=== PATIENT | female | born 1970 | race Caucasian/White ===

== ENCOUNTER → 2017-04-17 | Outpatient (CLI) | payer BC ==
[2017-04-17 10:36] LABS: Basophils # (A) 0.1 k/uL (0-0.2); Basophils % (A) 1 %; CH 30.7; CHCM 34.1; Eosinophils # (A) 0.3 k/uL (0-0.7); Eosinophils % (A) 4 %; HCT 40.4 % (34.0-46.0); HDW 2.55; HGB 14.4 gm/dL (11.4-16.0); Luc # (Auto) 0.16; Luc % (Auto) 2; Lymphocytes # (A) 1.8 k/uL (1.0-4.8); Lymphocytes % (A) 25 %; MCH 32.2 pg (25.0-35.0); MCHC 35.6 g/dL (31.0-37.0); MCV 90.3 fL (80.0-100.0); Mean Platelet Volume 7.4; Monocytes # (A) 0.4 k/uL (0-1.0); Monocytes % (A) 6 %; Neutrophils # (A) 4.5 k/uL (1.3-7.7); Neutrophils % (A) 62 %; RBC 4.47 m/uL (3.80-5.40); RDW 13.4 % (11.5-15.5); WBC 7.3 k/uL (3.8-10.6); WBC (Perox) 7.65
[2017-04-17 11:15] LABS: ALT 28 U/L (9-52); AST 17 U/L (14-36); Alkaline Phosphatase 65 U/L (38-126); Anion Gap 8 mmol/L; Blood Urea Nitrogen 12 mg/dL (7-17); Calcium 8.7 mg/dL (8.4-10.2); Carbon Dioxide 23 mmol/L (22-30); Chloride 108 mmol/L (98-107); Cholesterol 181 mg/dL (<200); Glucose 87 mg/dL (74-99); HDL Cholesterol 73 mg/dL (40-60); Non-African American GFR(MDRD) >60 (>60 ml/min/1.73 sqM); Potassium 4.4 mmol/L (3.5-5.1); Sodium 139 mmol/L (137-145); Total Bilirubin 0.8 mg/dL (0.2-1.3); Total Protein 6.5 g/dL (6.3-8.2); Triglycerides 104 mg/dL (<150)
== END ==
LOC: LABWHC1 09:56
PROVIDERS: ATTEND Internal Medicine
DX: E87.8 Other disorders of electrolyte and fluid balance, not elsewhere classified (principal); E78.4 Other hyperlipidemia; R53.83 Other fatigue
CPT/HCPCS: 36415; 80053; 80061; 84443; 85025

== ENCOUNTER → 2017-06-03 | Outpatient (CLI) | payer BC ==
--- NOTE | 2017-06-04 10:41 | MM ---
Reason for exam: screening (asymptomatic). Last mammogram was performed 1 year ago. Physical Findings: A clinical breast exam by your physician is recommended on an annual basis and results should be correlated with mammographic findings. MG 3D Screening Mammo W/Cad Bilateral CC and MLO view(s) were taken. Prior study comparison: May 30, 2016, bilateral MG 3d screening mammo w/cad. May 28, 2015, bilateral MG screening mammo w CAD. There are scattered fibroglandular densities. There is no discrete abnormality. No significant changes when compared with prior studies. ASSESSMENT: Negative, BI-RAD 1 RECOMMENDATION: Routine screening mammogram of both breasts in 1 year.
== END | disposition home or self-care (01) ==
LOC: RADMAMWWP 16:38
PROVIDERS: ATTEND Obstetrics & Gynecology
DX: Z12.31 Encounter for screening mammogram for malignant neoplasm of breast (principal)
CPT/HCPCS: 77063; G0202

== ENCOUNTER → 2018-07-26 | Outpatient (CLI) | payer BC ==
--- NOTE | 2018-07-28 11:28 | MM ---
Reason for exam: screening (asymptomatic). Last mammogram was performed 1 year and 2 months ago. Physical Findings: A clinical breast exam by your physician is recommended on an annual basis and results should be correlated with mammographic findings. MG 3D Screening Mammo W/Cad Bilateral CC and MLO view(s) were taken. Prior study comparison: June 03, 2017, bilateral MG 3d screening mammo w/cad. May 30, 2016, bilateral MG 3d screening mammo w/cad. The breast tissue is heterogeneously dense. This may lower the sensitivity of mammography. Stable asymmetric density superior left breast. No persisting abnormalities on 3D. No significant changes when compared with prior studies. ASSESSMENT: Negative, BI-RAD 1 RECOMMENDATION: Routine screening mammogram of both breasts in 1 year. Manage on a clinical basis with regard to inferior left breast ingrown hair or cutaneous lesion.
== END | disposition home or self-care (01) ==
LOC: RADMAMWWP 15:32
PROVIDERS: ATTEND Obstetrics & Gynecology
DX: Z12.31 Encounter for screening mammogram for malignant neoplasm of breast (principal)
CPT/HCPCS: 77063; 77067

== ENCOUNTER → 2021-04-19 | Outpatient (CLI) | payer BC ==
--- NOTE | 2021-04-22 14:24 | MM ---
Reason for exam: screening (asymptomatic). Last mammogram was performed 2 years and 9 months ago. Physical Findings: A clinical breast exam by your physician is recommended on an annual basis and results should be correlated with mammographic findings. MG 3D Screening Mammo W/Cad Bilateral CC and MLO view(s) were taken. Prior study comparison: July 26, 2018, bilateral MG 3d screening mammo w/cad. June 03, 2017, bilateral MG 3d screening mammo w/cad. There are scattered fibroglandular densities. ASSESSMENT: Negative, BI-RAD 1 RECOMMENDATION: Routine screening mammogram of both breasts in 1 year.
== END | disposition home or self-care (01) ==
LOC: RADMAMWWP 14:07
PROVIDERS: ATTEND Obstetrics & Gynecology
DX: Z12.31 Encounter for screening mammogram for malignant neoplasm of breast (principal)
CPT/HCPCS: 77063; 77067

== ENCOUNTER → 2022-03-05 | Outpatient (CLI) | payer BC ==
--- NOTE | 2022-03-05 16:20 | XR ---
EXAMINATION TYPE: XR chest 2V DATE OF EXAM: 03/05/2022 COMPARISON: None INDICATION: Short of breath TECHNIQUE: Frontal and lateral views of the chest are obtained. FINDINGS: The heart size is normal. The pulmonary vasculature is normal. The lungs are clear. IMPRESSION: 1. No acute pulmonary process.
== END | disposition home or self-care (01) ==
LOC: RADXRMAIN 15:39
PROVIDERS: ATTEND Nurse Practitioner Family
DX: R06.02 Shortness of breath (principal)
CPT/HCPCS: 71046

== ENCOUNTER → 2023-05-15 | Outpatient (CLI) | payer BC ==
--- NOTE | 2023-05-18 08:50 | MM ---
Reason for Exam: Screening (asymptomatic). Last mammogram was performed 2 year(s) and 1 month(s) ago. Patient History: Menarche at age 13. First Full-Term at age 30. Postmenopausal. Patient has history of breast feeding. Risk Values: Shira 5 year model risk: 1.1%. NCI Lifetime model risk: 9.7%. Prior Study Comparison: 05/28/2015 Bilateral Screening Mammogram, [facility]. 05/30/2016 Bilateral Screening Mammogram, [facility]. 06/03/2017 Bilateral Screening Mammogram, [facility]. 07/26/2018 Bilateral Screening Mammogram, [facility]. 04/19/2021 Bilateral Screening Mammogram, [facility]. Tissue Density: The breast tissue is heterogeneously dense. This may lower the sensitivity of mammography. Findings: Analyzed By CAD. There is no suspicious group of microcalcifications or new suspicious mass in either breast. Overall Assessment: Negative, BI-RAD 1 Management: Screening Mammogram of both breasts in [address] [facility] will attempt to contact patient to return for supplemental views and ultrasound if indicated. Patient should continue monthly self-breast exams. A clinical breast exam by your physician is recommended on an annual basis. This exam should not preclude additional follow-up of suspicious palpable abnormalities. Note on Shira scores and lifetime risk: 1. A Shira score greater than 3% is considered moderate risk. If this is the case, consider specialist referral to assess eligibility for a risk reducing agent. 2. If overall lifetime risk for the development of breast cancer is 20% or higher, the patient may qualify for future screening with alternating mammogram and breast MRI. Electronically signed and approved by: Reji Pennington DO
== END | disposition home or self-care (01) ==
LOC: RADMAMWWP 12:05
PROVIDERS: ATTEND Obstetrics & Gynecology
DX: Z12.31 Encounter for screening mammogram for malignant neoplasm of breast (principal); Z78.0 Asymptomatic menopausal state
CPT/HCPCS: 77063; 77067

== ENCOUNTER → 2025-01-27 | Outpatient (CLI) | payer BC ==
--- NOTE | 2025-01-30 10:20 | MM ---
Reason for Exam: Screening (asymptomatic). Last mammogram was performed 1 year(s) and 8 month(s) ago. Patient History: Menarche at age 13. First Full-Term at age 30. Postmenopausal. Patient has history of breast feeding. Risk Values: Shira 5 year model risk: 1.2%. NCI Lifetime model risk: 9.4%. Prior Study Comparison: 07/26/2018 Bilateral Screening Mammogram, [facility]. 04/19/2021 Bilateral Screening Mammogram, [facility]. 05/15/2023 Bilateral MG 3D screening mammo w/cad, [facility]. Tissue Density: The breasts are heterogeneously dense, which may obscure small masses. Findings: Analyzed By CAD. There is no suspicious group of microcalcifications or new suspicious mass in either breast. Overall Assessment: Negative, BI-RAD 1 Management: Screening Mammogram of both breasts in 1 year. Patient should continue monthly self-breast exams. A clinical breast exam by your physician is recommended on an annual basis. This exam should not preclude additional follow-up of suspicious palpable abnormalities. Note on Shira scores and lifetime risk: 1. A Shira score greater than 3% is considered moderate risk. If this is the case, consider specialist referral to assess eligibility for a risk reducing agent. 2. If overall lifetime risk for the development of breast cancer is 20% or higher, the patient may qualify for future screening with alternating mammogram and breast MRI. [facility], , 01/27/2025 10:22 AM. Electronically signed and approved by: Tomas Cantor M.D. [facility]
== END | disposition home or self-care (01) ==
LOC: RADMAMWWP 09:02
PROVIDERS: ATTEND Family Medicine
DX: Z12.31 Encounter for screening mammogram for malignant neoplasm of breast (principal); R92.333 Mammographic heterogeneous density, bilateral breasts; Z78.0 Asymptomatic menopausal state
CPT/HCPCS: 77063; 77067